=== PATIENT | male | born 1960 | race Caucasian/White ===

== ENCOUNTER 2019-03-28 13:51 | Outpatient (RCR) | payer OTHER | END 2019-04-23 10:26 | disposition home or self-care (01) | LOC: WSOH 13:51 | DX: S40.012A Contusion of left shoulder, initial encounter (principal); M75.122 Complete rotator cuff tear or rupture of left shoulder, not specified as traumatic; W01.198A Fall on same level from slipping, tripping and stumbling with subsequent striking against other object, initial encounter; Y92.89 Other specified places as the place of occurrence of the external cause; Y99.0 Civilian activity done for income or pay; K25.9 Gastric ulcer, unspecified as acute or chronic, without hemorrhage or perforation ==